=== PATIENT | male | born 1985 | race Caucasian/White ===

== ENCOUNTER 2024-10-21 01:51 | Emergency (ER) | payer BC, SELFPAY ==
[2024-10-21] VITALS (7 sets, daily range): BP systolic 116–141; BP diastolic 73–99; BMI 25.7
--- NOTE | 2024-10-21 02:11 | ED.GENMED ---
History of Present Illness
<NIURKA Temple - Last Filed: 10/21/24 05:07>
General
Chief Complaint: Abdominal Symptoms
Source: patient and significant other
Exam Limitations: none
Time Seen by Provider: 10/21/24 02:01
Nursing documentation reviewed up to this point in time: agreed with
History of Present Illness
History of Present Illness:
Pt is a 39 yo M with no significant PMH who presents to the ED for nausea and vomiting x 1 hour. 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 After his guests left, he began vomiting
BRB at first, which he describes as 'streaky.' Pt said subsequent episodes of vomiting contained 'pink' but no longer had BRB. Pt states the last episode of vomiting took place less than an hour ago. Pt denies dark or coffee-ground colored vomit. Pt
states he was seen 3 weeks ago for blood in his stool, and was prescribed metronidazole and ciprofloxacin, which he has been taking an reports resolution of hematochezia. Pt states he is supposed to schedule a
Past History
<NIURKA Temple - Last Filed: 10/21/24 05:07>
Past History
ED Past Medical History: Psychiatric
ED Past Surgical History: None
Social History
Tobacco: Smoker
Alcohol: Occasional
Drug: None
Living: with family
Employment: Employed
Phy Exam
<NIURKA Temple - Last Filed: 10/21/24 05:07>
General Physical Exam
General Presentation: well appearing and no apparent distress
General age: appears stated age
General Skin: warm and dry
General Habitus: normal
General Mental: alert
General Hydration: appears well hydrated
Cardiovascular Exam
Cardiovascular Exam: regular rate/rhythm and no murmur
Pulmonary Exam
Pulmonary Exam: lungs clear and no respiratory distress
Gastrointestinal Exam
Gastrointestinal Exam: normal bowel sounds, non tender, soft, non distended and no cva tenderness
Neurological Exam
Neurological Exam: alert, oriented x3, no motor deficits, no sensory deficits and speech normal
Course
<Jody Reynoso, [facility] - Last Filed: 10/21/24 05:07>
Orders/Labs/Results
Orders:
Orders
10/21/24 02:17
CMP [Comprehensive Metabolic Panel] Urgent
Complete Blood Count/With Diff Urgent
10/21/24 02:24
CXR2 [CR Chest - 2 Views ] Urgent
Comment:
Reason For Exam: cp, short of breath
10/21/24 02:25
Troponin I Urgent
10/21/24 03:08
Electrocardiogram (*1) Urgent
Reason for Study: QTc Monitoring
EKG- Treatment ONCE
10/21/24 03:14
Ondansetron Injectable [Zofran] 4 mg .ROUTE .STK-MED ONE
10/21/24 03:24
Ondansetron Injectable [Zofran] 4 mg IV NOW STA
Abnormal Lab Results
10/21/24
02:17
RBC 4.67 L 10^6/uL
(4.70-6.10)
MCH 32.1 H pg
(27.0-31.0)
Absolute Monos (auto) 0.9 H 10^3/uL
(0.1-0.6)
Monocytes % 9.9 H %
(1.7-9.3)
ALT 51 H U/L
(0-50)
10/21/24 02:17
10/21/24 02:17
Vital Signs
Initial and Last Documented VS:
Initial Vital Signs
Temp Pulse Resp BP Pulse Ox
97.8 F 84 22 134/94 100
10/21/24 01:54 10/21/24 01:54 10/21/24 01:54 10/21/24 01:54 10/21/24 01:54
Last Documented Vital Signs
Temp Pulse Resp BP Pulse Ox
97.8 F 72 16 119/83 96
10/21/24 01:54 10/21/24 04:00 10/21/24 02:16 10/21/24 04:00 10/21/24 04:00
<Fernando John, DO - Last Filed: 10/21/24 04:58>
Orders/Labs/Results
Orders:
Orders
10/21/24 02:17
CMP [Comprehensive Metabolic Panel] Urgent
Complete Blood Count/With Diff Urgent
10/21/24 02:24
CXR2 [CR Chest - 2 Views ] Urgent
Comment:
Reason For Exam: cp, short of breath
10/21/24 02:25
Troponin I Urgent
10/21/24 03:08
Electrocardiogram (*1) Urgent
Reason for Study: QTc Monitoring
EKG- Treatment ONCE
10/21/24 03:14
Ondansetron Injectable [Zofran] 4 mg .ROUTE .STK-MED ONE
10/21/24 03:24
Ondansetron Injectable [Zofran] 4 mg IV NOW STA
Abnormal Lab Results
10/21/24
02:17
RBC 4.67 L 10^6/uL
(4.70-6.10)
MCH 32.1 H pg
(27.0-31.0)
Absolute Monos (auto) 0.9 H 10^3/uL
(0.1-0.6)
Monocytes % 9.9 H %
(1.7-9.3)
ALT 51 H U/L
(0-50)
10/21/24 02:17
10/21/24 02:17
Vital Signs
Initial and Last Documented VS:
Initial Vital Signs
Temp Pulse Resp BP Pulse Ox
97.8 F 84 22 134/94 100
10/21/24 01:54 10/21/24 01:54 10/21/24 01:54 10/21/24 01:54 10/21/24 01:54
Last Documented Vital Signs
Temp Pulse Resp BP Pulse Ox
97.8 F 72 16 119/83 96
10/21/24 01:54 10/21/24 04:00 10/21/24 02:16 10/21/24 04:00 10/21/24 04:00
<NIURKA Temple - Last Filed: 10/21/24 05:07>
MDM/Problems Addressed
Differential Diagnosis Includes:
adverse rxn to medication; acute gastroenteritis; adverse rxn to alcohol
<NIURKA Temple - Last Filed: 10/21/24 05:07>
*EKG
Interpreted by ED Provider?: Yes
EKG Intrepretation Date: 10/21/24
Interpretation: normal
Comparison EKG: no comparison EKG present
Heart Rate: 76
Rate: normal
Rhythm: sinus
Eastman: normal axis
Interval: normal interval
QRS Pattern: normal QRS
Ischemia: no ischemia
*Critical Care Note
Total Time (30-74mins, 75-104mins- exclusive of procedures): Not Applicable
ED Attending Note
<NIURKA Temple - Last Filed: 10/21/24 05:07>
-
Portions of this chart may have been created with voice recognition software.� Occasional wrong word or��sound alike� substitutions may have occurred due to the inherent limitations of voice recognition software.
<Fernando John DO - Last Filed: 10/21/24 04:58>
ED Attending Note
Patient seen and examined by attending physician: Yes
I performed the substantive portion of visit, reviewed & personally made and approve the management plan that is documented in note by myself or JAY.: Yes
ED Attending Note:
Pleasant 39-year-old male presents to the emergency department with diminishing hematemesis. He states that he was drinking this evening and had several episodes of vomiting. The first 1 had some bright red blood shortly thereafter he had
pink-tinged vomitus and then after that he had bilious vomiting without any bright. He denies any coffee-ground like emesis. Patient was seen 3 weeks ago for abdominal pain and some blood in his stool that was bright red. Patient was started on
Bentyl, fluoroquinolone, and metronidazole. He has been taking them regularly. He states that tonight he drank alcohol and then had the vomiting shortly thereafter. Denies fever chills. Reports no chest pain or shortness of breath. Patient was
seen in conjunction with the PA student. I have reviewed and agree with the history and treatment plan presented. On my independent physical exam, patient is awake, alert, and oriented x3 no acute distress heart is regular rate rhythm. Lungs
clear to auscultation bilaterally without wheezes rales or rhonchi present. Abdomen is soft nontender nondistended no hepatosplenomegaly. Negative Butler sign. Negative McBurney's point tenderness. Skin is warm and dry. Moves all 4 extremities.
Chest x-ray normal.
I advised patient to not consume alcohol while taking his antibiotics. He is in agreement. He will get a prescription for pantoprazole that will be taken in between doses of antibiotics. He will follow-up with GI. He states that he has all the
contact information and will make a call. Patient denies any other complaints and wishes to be discharged.
Discharge Plan
Departure
Patient Disposition: Home (Routine Discharge)
Date of Disposition: 10/21/24
Time of Disposition: 04:55
Patient with high blood pressure during this ER visit?: No
Condition: Good
Discharge Problem:
Hematemesis/vomiting blood
Instructions: Clear Liquid Diet, Nausea and Vomiting, Adult (DC)
Prescriptions:
New
pantoprazole 40 mg tablet,delayed release (DR/EC)
40 mg PO DAILY Qty: 14 0RF
No Action
ciprofloxacin HCl 500 mg tablet
500 mg PO BID Qty: 14 0RF
dicyclomine 20 mg Tablet
20 mg PO QID
metronidazole 500 mg tablet
500 mg PO BID
Referrals:
Quique Dyer DO [Family Provider] -
Activity Restrictions/Additional Instructions:
It was a pleasure meeting you and taking part in your care. We hope for your continued healing and wellness.
Please read discharge instructions in their entirety. However, they are for general education and may not describe your exact diagnosis at discharge. Information on your ER visit and medical conditions were discussed with you along with appropriate
follow up information...
If indicated, please take your medications as instructed and indicated on discharge paperwork.
Please schedule a follow up appointment as directed. Call to schedule an appointment
Please return to the emergency department with ANY change in, persisting, or worsening of symptoms. If any of your symptoms do not improve, or persist, or become more severe within 6-12 hours, please return to the emergency department for further
care.
Please return to the emergency department if you develop a headache, neck pain/stiffness, fever greater than 100.4F, chest pain, shortness of breath, persistent nausea, vomiting, slurred speech, difficulty walking, numbness/tingling, weakness, signs
of infection or any other symptoms that are worrisome to you.
If you have any questions or concerns please do not hesitate to call the Hospital at or E-mail me directly at [email or web address]
Interventions
Interventions:
*Risk Screen - Suicide Last Done: 10/21/24 01:54
*General Assessment Last Done: 10/21/24 02:03
*Neglect/Abuse Screening Last Done: 10/21/24 01:54
*ED COVID-19 Vaccine History Last Done: 10/21/24 02:03
*Nursing Disposition Last Done: 10/21/24 05:02
KK-Vrncms-Yfooffvdcd Assessment Last Done: 10/21/24 02:19
Discharge Date and Time
Discharge Date/Time: 10/21/24 05:03
Print Language: [id number]
[2024-10-21 02:23] LABS: % Basophils 0.5 % (0-2); % Eosinophils 0.5 % (0-6); % Immature Granulocytes 0.3 % (0-0.5); % Lymphocytes 21.5 % (20.5-51.1); % Monocytes 9.9 % (1.7-9.3); % Neutrophils 67.3 % (42.2-75.2); Absolute Basophils 0.1 10^3/uL (0-0.2); Absolute Eosinophils 0.1 10^3/uL (0-0.7); Absolute Monocytes 0.9 10^3/uL (0.1-0.6); Absolute Neutrophils 6.2 10^3/uL (1.4-6.5); Hematocrit 43.3 % (39.0-52.0); Mean Corp Hgb Conc. 34.6 g/dL (33.0-37.0); Mean Corpuscular Hgb 32.1 pg (27.0-31.0); Mean Corpuscular Volume 92.7 fL (80.0-94.0); Mean Platelet Volume 9.1 fL (7.4-10.4); Nucleated Red Blood Cells % 0 % (-); Platelet Count 327 10^3/uL (130-400); Red Blood Cell Count 4.67 10^6/uL (4.70-6.10); Red Cell Dist. Width 11.7 % (11.5-14.5); White Blood Cell Count 9.2 10^3/uL (4.8-10.8)
[2024-10-21 02:39] LABS: ALT (SGPT) 51 U/L (0-50); AST (SGOT) 43 U/L (17-59); Albumin 4.8 g/dl (3.5-5.0); Alkaline Phosphatase 54 U/L (38-126); Blood Urea Nitrogen 10 mg/dl (9-20); Calcium 9.3 mg/dl (8.4-10.2); Carbon Dioxide 23 mmol/L (22-30); Chloride 104 mmol/L (98-107); Estimated Creatinine Clearance 121 ml/min; Glucose 99 mg/dl (70-99); Potassium 4.1 mmol/L (3.5-5.1); Sodium 141 mmol/L (135-145); Total Bilirubin 0.7 mg/dl (0.2-1.3); Total Protein 7.6 g/dl (6.3-8.2); eGFR > 60.00
[2024-10-21 02:57] LABS: Troponin I < 0.012 ng/ml
[2024-10-21] MEDS: ZOFRAN 4 MG IV (03:26)
== END 2024-10-21 05:03 | disposition home or self-care (01) ==
LOC: EMR 01:51
PROVIDERS: EMERGENCY PHYSICIAN Student in an Organized Health Care Education/Training Program; FAMILY PHYSICIAN Family Medicine
DX: K92.0 Hematemesis (principal); F10.90 Alcohol use, unspecified, uncomplicated; F17.200 Nicotine dependence, unspecified, uncomplicated
CPT/HCPCS: 96374; 99285; 71046; 80053; 84484; 85025; 93005